=== PATIENT | male | born 1960 | race Caucasian/White ===

== ENCOUNTER 2021-11-27 16:34 | Emergency (ER) | payer OTHER ==
[~2021-11-27 16:34] MED LIST: ADULT ASPIRIN81 MG PO; KEFLEX CAP 500500 MG PO; LEVEMIR100 UNIT/1 SC; LIPITOR TAB 2020 MG PO; LOPRESSOR 25 MG25 MG PO; NOVOLOG 10100 UNITS/ SC
[2021-11-27 18:36] LABS: HEMOGLOBIN 16.2 gm/dl (14.0-17.5); RED BLOOD COUNT 6.01 M/UL (4.20-5.50); WHITE BLOOD COUNT 9.8 K/UL (4.5-11.0)
[2021-11-27 19:30] LABS: BUN/CREATININE RATIO 16 (0-10)
[2021-11-27] MEDS ORDERED: AUGMENTIN 875-1 EACH PO (21:48)
== END 2021-11-27 22:10 | disposition home or self-care (01) ==
LOC: ER1 16:34
PROVIDERS: Physician Assistant
DX: R10.11 Right upper quadrant pain (principal); E11.9 Type 2 diabetes mellitus without complications; Z20.822 Contact with and (suspected) exposure to COVID-19; I10 Essential (primary) hypertension
CPT/HCPCS: 0240U; 71045; 80053; 81001; 83690; 85025; 87086; 93005; 96374; 99284; J2405; Q9967